=== PATIENT | female | born 1975 | race Caucasian/White ===

== ENCOUNTER 2017-10-21 14:02 | Emergency (ER) | payer OTHER ==
[2017-10-21 14:24] VITALS: BP 142/80
--- NOTE | 2017-10-21 14:41 | EDM.PDOC ---
ED HPI GENERAL MEDICAL PROBLEM - General Chief Complaint: Respiratory Problem Stated Complaint: DISCOMFORT WHEN BREATHING IN CHEST/HAS PACEMAKER Time Seen by Provider: 10/21/17 14:35 Source of Information: Reports: Patient History Limitations: Reports: No Limitations - History of Present Illness INITIAL COMMENTS - FREE TEXT/NARRATIVE: Pt with sudden onset chest pressure while driving to work. Had rested and showered this morning. History of DVT 2014 and pacemaker for heart block in 2014. Takes no meds. Did have hematology workup for DVT that year. Pt does not smoke. Pt does use large amounts of caffeine today. Denies shortness of breath. Denies pain at rest. Feels the pressure with inspiration. Onset: Sudden Onset Date: 10/21/17 Onset Time: 14:41 Duration: Intermittent Location: Reports: Chest Quality: Reports: Dull Severity: Moderate Improves with: Reports: None Worsens with: Reports: Breathing Associated Symptoms: Reports: No Other Symptoms - Related Data Allergies Allergy/AdvReac Type Severity Reaction Status Date / Time adhesive Allergy Hives Verified 10/21/17 14:24 Home Meds: Home Meds NK [No Known Home Meds] 10/21/17 [History] Past Medical History Cardiovascular History: Reports: Blood Clots/VTE/DVT, Hypertension, Pacemaker Other Cardiovascular History: 3 rd degree heart block Musculoskeletal History: Reports: Arthritis Psychiatric History: Reports: PTSD Endocrine/Metabolic History: Reports: Obesity/BMI 30+ Hematologic History: Reports: Anemia, Blood Transfusion(s) - Infectious Disease History Infectious Disease History: Reports: Chicken Pox - Past Surgical History HEENT Surgical History: Reports: Adenoidectomy Other HEENT Surgeries/Procedures: bilateral tubes ears Female Surgical History: Reports: Section Social & Family History - Tobacco Use Smoking Status *Q: Never Smoker - Caffeine Use Caffeine Use: Reports: Soda, Tea - Recreational Drug Use Recreational Drug Use: No ED ROS GENERAL - Review of Systems Review Of Systems: See Below Constitutional: Reports: No Symptoms HEENT: Reports: No Symptoms Respiratory: Reports: No Symptoms Cardiovascular: Reports: Chest Pain Endocrine: Reports: No Symptoms GI/Abdominal: Reports: No Symptoms Musculoskeletal: Reports: No Symptoms Skin: Reports: No Symptoms Neurological: Reports: No Symptoms Psychiatric: Reports: No Symptoms Hematologic/Lymphatic: Reports: No Symptoms Immunologic: Reports: No Symptoms ED EXAM, GENERAL - Physical Exam Exam: See Below Exam Limited By: No Limitations General Appearance: Alert, WD/WN, No Apparent Distress, Obese Ears: Normal External Exam, Normal Canal, Hearing Grossly Normal, Normal TMs Nose: Normal Inspection, Normal Mucosa, No Blood Throat/Mouth: Normal Inspection, Normal Lips, Normal Teeth, Normal Gums, Normal Oropharynx, Normal Voice, No Airway Compromise Head: Atraumatic, Normocephalic Neck: Normal Inspection, Supple, Non-Tender, Full Range of Motion Respiratory/Chest: No Respiratory Distress, Lungs Clear, Normal Breath Sounds, No Accessory Muscle Use, Chest Non-Tender Cardiovascular: Normal Peripheral Pulses, Regular Rate, Rhythm, No Edema, No Gallop, No JVD, No Murmur, No Rub GI/Abdominal: Normal Bowel Sounds, Soft, Non-Tender, No Organomegaly, No Distention, No Abnormal Bruit, No Mass Extremities: Normal Inspection, Normal Range of Motion, Non-Tender, Normal Capillary Refill, No Pedal Edema Neurological: Alert, Oriented, CN II-XII Intact, Normal Cognition, Normal Gait, Normal Reflexes, No Motor/Sensory Deficits Psychiatric: Normal Affect, Normal Mood Skin Exam: Warm, Dry, Intact, Normal Color, No Rash Lymphatic: No Adenopathy EKG INTERPRETATION EKG Date: 10/21/17 Time: 14:55 Rhythm: NSR [place]: Normal P-Wave: Present QRS: Normal ST-T: Normal QT: Normal Comparison: No Change Course - Vital Signs Last Recorded V/S: Last Vital Signs Temp 98.3 F 10/21/17 14:22 Pulse 74 10/21/17 14:22 Resp 16 10/21/17 14:22 BP 142/80 H 10/21/17 14:22 Pulse Ox 97 10/21/17 14:22 - Orders/Labs/Meds Orders: Active Orders 24 hr Category Date Time Status Cardiac Monitoring [RC] .As Directed Care 10/21/17 14:43 Active EKG Documentation Completion [RC] ASDIRECTED Care 10/21/17 14:44 Active Chest 2V [CR] Stat Exams 10/21/17 14:44 Taken EKG 12 Lead [EK] Stat Ther 10/21/17 14:44 Ordered Labs: Laboratory Tests 10/21/17 10/21/17 10/21/17 Range/Units 14:58 14:58 14:58 WBC 5.6 (4.5-11.0) K/uL RBC 4.40 (3.30-5.50) M/uL Hgb 12.6 (12.0-15.0) g/dL Hct 39.2 (36.0-48.0) % MCV 89 (80-98) fL MCH 29 (27-31) pg MCHC 32 (32-36) % Plt Count 327 (150-400) K/uL Neut % (Auto) 50 (36-66) % Lymph % (Auto) 40 (24-44) % [place] % (Auto) 8 H (2-6) % Eos % (Auto) 1 L (2-4) % Baso % (Auto) 0 (0-1) % D-Dimer, Quantitative < 100 (0.0-400.0) ng/mL Sodium 140 (140-148) mmol/L Potassium 3.8 (3.6-5.2) mmol/L Chloride 106 (100-108) mmol/L Carbon Dioxide 28 (21-32) mmol/L Anion Gap 5.6 (5.0-14.0) mmol/L BUN 10 (7-18) mg/dL Creatinine 0.8 (0.6-1.0) mg/dL Est Cr Clr Drug Dosing 70.98 mL/min Estimated GFR (MDRD) > 60 (>60) Glucose 135 H (74-106) mg/dL Calcium 9.1 (8.5-10.1) mg/dL Total Bilirubin 0.6 (0.2-1.0) mg/dL AST 17 (15-37) U/L ALT 20 (12-78) U/L Alkaline Phosphatase 122 H (46-116) U/L Creatine Kinase 128 (26-192) U/L CK-MB (CK-2) 1.7 (0-3.6) mg/mL Troponin I < 0.017 (0.000-0.056) ng/mL C-Reactive Protein 0.49 H (0.0-0.3) mg/dL Total Protein 6.8 (6.4-8.2) g/dL Albumin 3.2 L (3.4-5.0) g/dL Globulin 3.6 H (2.3-3.5) g/dL Albumin/Globulin Ratio 0.9 L (1.2-2.2) Meds: Medications Discontinued Medications Generic Name Dose Route Start Last Admin Trade Name Emma PRN Reason Stop Dose Admin Al Hydroxide/Mg Hydroxide 15 0 ml 10/21/17 15:06 10/21/17 15:23 ml/ Lidocaine HCl 15 ml PO 10/21/17 15:07 30 ml ONETIME ONE Administration Departure - Departure Time of Disposition: 15:41 Disposition: Home, Self-Care 01 Condition: Good Clinical Impression: Dyspepsia - Discharge Information *PRESCRIPTION DRUG MONITORING PROGRAM REVIEWED*: Not Applicable *COPY OF PRESCRIPTION DRUG MONITORING REPORT IN PATIENT JOSE LUIS: Not Applicable Instructions: Abdominal Bloating Referrals: PCP,None [Primary Care Provider] - Forms: ED Department Discharge Additional Instructions: Labs and Chest xray normal. EKG normal. Pt responds well to GI cocktail. Stressed the need to avoid caffeine and limit sugar in diet. Encouraged regular exercise and weight loss for weight reduction and cardiovascular risk reduction. Pt to followup if pain persists with primary care. - Problem List & Annotations (1) Dyspepsia SNOMED Code(s): 408442541 Code(s): R10.13 - EPIGASTRIC PAIN Status: Acute Priority: Medium Current Visit: Yes - My Orders Last 24 Hours: My Active Orders 10/21/17 14:43 Cardiac Monitoring [RC] .As Directed 10/21/17 14:44 EKG Documentation Completion [RC] ASDIRECTED Chest 2V [CR] Stat EKG 12 Lead [EK] Stat - Assessment/Plan Last 24 Hours: My Active Orders 10/21/17 14:43 Cardiac Monitoring [RC] .As Directed 10/21/17 14:44 EKG Documentation Completion [RC] ASDIRECTED Chest 2V [CR] Stat EKG 12 Lead [EK] Stat
[2017-10-21] MEDS ORDERED: Alum Hydrox/Mag Hydrox/Simeth 15 ML, Lidocaine 2% 15 ML PO ONE ×2 (15:06)
--- NOTE | 2017-10-24 09:17 | CR ---
CHEST: 2 view CLINICAL HISTORY:Chest pain COMPARISON:Portable study 2014 FINDINGS: Heart size and pulmonary vascularity are normal. Patient has a permanent cardiac pacer. No infiltrates are seen. There are no effusions. There is a calcified nodule in the right lower lobe. T his is seen on CT scan from 10/21/2017 IMPRESSION: Permanent cardiac pacer No acute cardiopulmonary process Right lower lobe granuloma
== END 2017-10-21 16:02 | disposition home or self-care (01) ==
LOC: JP.ED 14:02
DX: R10.13 Epigastric pain (principal); I10 Essential (primary) hypertension; Z91.09 Other allergy status, other than to drugs and biological substances
CPT/HCPCS: 36415; 71046; 80053; 82550; 82553; 84484; 85025; 85379; 86140; 93005; 99285; A9270

== ENCOUNTER 2019-07-24 09:54 | Inpatient (IN) | payer BC, OTHER ==
[2019-07-24] MEDS ORDERED: Ondansetron 4 MG Tab.DIS PO ONE (10:33)
--- NOTE | 2019-07-24 10:44 | EDM.PDOC ---
ED HPI GENERAL MEDICAL PROBLEM - General Chief Complaint: Abdominal Pain Stated Complaint: STOMACH PAIN Time Seen by Provider: 07/24/19 10:25 Source of Information: Reports: Patient, Old Records History Limitations: Reports: No Limitations - History of Present Illness INITIAL COMMENTS - FREE TEXT/NARRATIVE: 44 yo female presents with abdominal pain diffusely that she has been experiencing every couple mos since Mar. Her work ups have been negative @ the [facility]. She has never been to her provider for this due to how hard it is to get an appt. Has nausea. No fever. Last BM yesterday was normal. Pain diffuse. Worse with movement. Has not eaten today. Had colonoscopy 6 yrs ago that was normal per her. Not able to vomit due to her Darwin. Onset: Today Onset Date: 07/24/19 Duration: Hour(s):, Constant Location: Reports: Abdomen Quality: Reports: Ache, Other (fullness) Severity: Moderate Improves with: Reports: Rest Worsens with: Reports: Movement Context: Reports: Other (see HPI) Associated Symptoms: Reports: Nausea/Vomiting (not able to vomit.). 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: Musculoskeletal History: Reports: Arthritis Psychiatric History: Reports: PTSD Endocrine/Metabolic History: Reports: Obesity/BMI 30+ Hematologic History: Reports: Anemia, Blood Transfusion(s) - Infectious Disease History Infectious Disease History: Reports: Chicken Pox - Past Surgical History HEENT Surgical History: Reports: Adenoidectomy Other HEENT Surgeries/Procedures: bilateral tubes ears Cardiovascular Surgical History: Reports: Pacer GI Surgical History: Reports: Hernia Repair/Other Female Surgical History: Reports: Section Social & Family History - Tobacco Use Smoking Status *Q: Never Smoker - Caffeine Use Caffeine Use: Reports: Tea ED ROS GENERAL - Review of Systems Review Of Systems: See Below Constitutional: Denies: Fever, Chills HEENT: Reports: No Symptoms Respiratory: Reports: No Symptoms Cardiovascular: Reports: No Symptoms GI/Abdominal: Reports: Abdominal Pain, Decreased Appetite, Distension, Nausea. Denies: Black Stool, Bloody Stool, Constipation, Flatus, Hematemesis, Hematochezia, Melena, Vomiting : Reports: No Symptoms Musculoskeletal: Reports: No Symptoms Skin: Reports: No Symptoms Neurological: Reports: No Symptoms Psychiatric: Reports: No Symptoms ED EXAM, GI/ABD - Physical Exam Exam: See Below Exam Limited By: No Limitations General Appearance: Alert, WD/WN, No Apparent Distress, Obese Eyes: Bilateral: Normal Appearance Ears: Normal External Exam, Normal Canal, Hearing Grossly Normal, Normal TMs Nose: Normal Inspection, No Blood Throat/Mouth: Normal Inspection, Normal Lips, Normal Oropharynx, Normal Voice, No Airway Compromise Head: Atraumatic, Normocephalic Neck: Normal Inspection Respiratory/Chest: No Respiratory Distress, Lungs Clear, Normal Breath Sounds, No Accessory Muscle Use Cardiovascular: Regular Rate, Rhythm, No Edema GI/Abdominal Exam: Normal Bowel Sounds, Soft, Distended (vs obese), Tender ( diffusely). No: Non-Tender, No Distention, Guarding, Rigid, Rebound Back Exam: Normal Inspection. No: CVA Tenderness (R), CVA Tenderness (L) Extremities: Normal Inspection, Normal Range of Motion, Non-Tender, No Pedal Edema Neurological: Alert, Oriented, CN II-XII Intact, Normal Cognition, No Motor/ Sensory Deficits Psychiatric: Normal Affect, Normal Mood Skin Exam: Warm, Dry, Intact, Normal Color, No Rash Course - Vital Signs Text/Narrative:: Dr. Saira Werner called @ 1332h Last Recorded V/S: Last Vital Signs Temp 36.9 C 07/24/19 10:22 Pulse 130 H 07/24/19 10:22 Resp 14 07/24/19 10:22 BP 121/87 07/24/19 10:22 Pulse Ox 96 07/24/19 10:22 - Orders/Labs/Meds Orders: Active Orders 24 hr Category Date Time Status UA W/MICROSCOPIC [URIN] Stat Lab 07/24/19 10:34 Ordered Iopamidol [Isovue-300 (61%)] Med 07/24/19 11:37 Active 150 ml IV . DIRECTED PRN NS + KCl 20mEq/L [Normal Saline with 20 mEq KCl] 1,000 Med 07/24/19 11:15 Active ml IV ASDIRECTED Sodium Chloride 0.9% [Normal Saline] 85 ml Med 07/24/19 11:45 Active IV ASDIRECTED Medication Orders Potassium Chloride/Sodium Chloride (Normal Saline With 20 Meq Kcl) 1,000 mls @ 500 mls/hr IV ASDIRECTED EDE Last Admin: 07/24/19 11:44 Dose: 500 mls/hr Sodium Chloride (Normal Saline) 85 mls @ 3.5 mls/sec IV ASDIRECTED EDE Last Admin: 07/24/19 12:35 Dose: 3.5 mls/sec Iopamidol (Isovue-300 (61%)) 150 ml IV . DIRECTED PRN PRN Reason: RADIOLOGY EXAM Stop: 07/25/19 11:38 Last Admin: 07/24/19 12:34 Dose: 100 ml Labs: Laboratory Tests 07/24/19 07/24/19 07/24/19 Range/Units 10:47 10:47 11:12 WBC 15.7 H (4.5-11.0) K/uL RBC 4.35 (3.30-5.50) M/uL Hgb 12.2 (12.0-15.0) g/dL Hct 38.9 (36.0-48.0) % MCV 89 (80-98) fL MCH 28 (27-31) pg MCHC 31 L (32-36) % Plt Count 324 (150-400) K/uL Sodium 139 L (140-148) mmol/L Potassium 3.5 L (3.6-5.2) mmol/L Chloride 104 (100-108) mmol/L Carbon Dioxide 23 (21-32) mmol/L Anion Gap 15.5 H (5.0-14.0) mmol/L BUN 11 (7-18) mg/dL Creatinine 0.9 (0.6-1.0) mg/dL Est Cr Clr Drug Dosing 58.94 mL/min Estimated GFR (MDRD) > 60 (>60) Glucose 125 H (74-106) mg/dL Calcium 8.7 (8.5-10.1) mg/dL Total Bilirubin 1.6 H D (0.2-1.0) mg/dL AST 12 L (15-37) U/L ALT 27 (12-78) U/L Alkaline Phosphatase 82 (46-116) U/L C-Reactive Protein 3.42 H (0.0-0.3) mg/dL Total Protein 7.6 (6.4-8.2) g/dL Albumin 3.6 (3.4-5.0) g/dL Globulin 4.0 H (2.3-3.5) g/dL Albumin/Globulin Ratio 0.9 L (1.2-2.2) Lipase 61 L (73-393) U/L Meds: Medications Generic Name Dose Route Start Last Admin Trade Name Freq PRN Reason Stop Dose Admin Potassium Chloride/Sodium Chloride 1,000 mls @ 500 mls/hr 07/24/19 11:15 05/09 11:44 Normal Saline With 20 Meq Kcl IV 500 mls/hr ASDIRECTED EDE Administration Sodium Chloride 85 mls @ 3.5 mls/sec 07/24/19 11:45 07/24/19 12:35 Normal Saline IV 3.5 mls/sec ASDIRECTED EDE Administration Iopamidol 150 ml 07/24/19 11:37 07/24/19 12:34 Isovue-300 (61%) IV 07/25/19 11:38 100 ml . DIRECTED PRN Administration RADIOLOGY EXAM Discontinued Medications Generic Name Dose Route Start Last Admin Trade Name Freq PRN Reason Stop Dose Admin Hydromorphone HCl 0.25 mg 07/24/19 11:16 07/24/19 11:42 Dilaudid IVPUSH 07/24/19 11:17 0.25 mg ONETIME ONE Administration Ondansetron HCl 4 mg 07/24/19 10:33 07/24/19 11:42 Zofran Odt PO 07/24/19 10:34 4 mg ONETIME ONE Administration Sodium Chloride 10 ml 07/24/19 11:37 07/24/19 12:35 Saline Flush FLUSH 07/24/19 11:38 10 ml ONETIME ONE Administration - Radiology Interpretation Free Text/Narrative:: CT abd/pelvis with IV contrast- Departure - Departure Time of Disposition: 13:50 Disposition: Admitted As Inpatient 64 Condition: Fair Clinical Impression: Acute appendicitis Qualifiers: Acute appendicitis type: with localized peritonitis Appendicitis gangrene presence: unspecified whether gangrene present Appendicitis perforation presence : without perforation Appendicitis abscess presence: without abscess Qualified Code(s): K35.30 - Acute appendicitis with localized peritonitis, without perforation or gangrene - Discharge Information *PRESCRIPTION DRUG MONITORING PROGRAM REVIEWED*: No *COPY OF PRESCRIPTION DRUG MONITORING REPORT IN PATIENT JOSE LUIS: No Referrals: Nelly Palma MD [Primary Care Provider] - Forms: ED Department Discharge Sepsis Event Note - Evaluation Sepsis Screening Result: No Definite Risk - Focused Exam Vital Signs: Vital Signs Temp Pulse Resp BP Pulse Ox 07/24/19 10:22 36.9 C 130 H 14 121/87 96 07/24/19 10:14 36.9 C 130 H 14 121/87 96 Date Exam was Performed: 07/24/19 Time Exam was Performed: 13:39 - My Orders Last 24 Hours: My Active Orders 07/24/19 10:34 UA W/MICROSCOPIC [URIN] Stat 07/24/19 11:15 NS + KCl 20mEq/L [Normal Saline with 20 mEq KCl] 1,000 ml IV ASDIRECTED 07/24/19 11:37 Iopamidol [Isovue-300 (61%)] 150 ml IV . DIRECTED PRN 07/24/19 11:45 Sodium Chloride 0.9% [Normal Saline] 85 ml IV ASDIRECTED - Assessment/Plan Last 24 Hours: My Active Orders 07/24/19 10:34 UA W/MICROSCOPIC [URIN] Stat 07/24/19 11:15 NS + KCl 20mEq/L [Normal Saline with 20 mEq KCl] 1,000 ml IV ASDIRECTED 07/24/19 11:37 Iopamidol [Isovue-300 (61%)] 150 ml IV . DIRECTED PRN 07/24/19 11:45 Sodium Chloride 0.9% [Normal Saline] 85 ml IV ASDIRECTED
[2019-07-24] MEDS ORDERED: NS + KCl 20mEq/L 1,000 ML IV SCH (11:15)
[2019-07-24] MEDS ORDERED: HYDROmorphone 0.5 MG/0.5 ML Syringe IVPUSH ONE ×2 (11:16→14:02)
[2019-07-24] MEDS ORDERED: Iopamidol 612 MG/ML 150 ML Bottle IV PRN (11:37)
[2019-07-24] MEDS ORDERED: Sodium Chloride 0.9% 10 ML Syringe FLUSH ONE (11:37)
--- NOTE | 2019-07-24 12:53 | CT ---
Abdomen Pelvis w Cont CLINICAL HISTORY: Abdominal pain and leukocytosis COMPARISON: 2014. TECHNIQUE: Axial tomographic images are obtained from the dome of the diaphragm to the pubic symphysis without IV contrast enhancement. No oral contrast was used. Auto dosage reduction and iterative reconstruction techniques employed. FINDINGS: There is peritoneal inflammation in the right lower quadrant with ill-definition of an enlarged enhancing appendix with a small amount of free fluid. There is cecal dilatation which may represent some focal ileus The lung bases show no mass or infiltrates. There is a large granuloma in the right lung base. There is some breathing motion obscuring detail.. The liver shows no mass or biliary dilatation. The gallbladder has a normal contour. The spleen has a normal size and shape. Patient has had a previous Darwin procedure. There is a small hiatal hernia. The pancreas is free of mass or inflammatory change. The adrenal glands appear normal bilaterally. The kidneys show no mass stones or hydronephrosis. There appears to been a previous bypass of the left the common iliac artery with stent placement the into the left femoral artery. This is occluded. There is a patent to the iliac vessel anteriorly. This should be correlated with clinical and surgical history. There is no suspicious retroperitoneal adenopathy. IMPRESSION: Findings most consistent with appendicitis. The appendix is poorly defined due to regional inflammation. There is a small amount of localized free fluid. There is localized to the cecal and ascending colon ileus Previous distal aortic and iliac surgery with previous stent placement which is occluded. There is a patent left iliac vessel. Small hiatal hernia with previous Darwin procedure.
[2019-07-24] MEDS ORDERED: Bupivacaine 0.5%/EPINEPHrine 1:200,000 50 ML MDV ONE (14:08)
[2019-07-24] MEDS ORDERED: Ampicillin/Sulbactam Na 3 GM in Sodium Chloride 0.9% 100 ML IV ONE (14:15)
[2019-07-24] MEDS ORDERED: Dextrose 5%-Lactated Ringers 1,000 ML IV SCH ×2 (14:45→19:15)
[2019-07-24] MEDS ORDERED: HYDROmorphone/Normal Saline 15 MG/30 ML PCA IV PRN (14:49)
[2019-07-24] MEDS ORDERED: Naloxone 0.4 MG/ML SDV IV PRN (14:49)
[2019-07-24] MEDS ORDERED: fentaNYL 250 MCG/5 ML SDV ONE (15:01)
[2019-07-24] MEDS ORDERED: Neostigmine Methylsulfate 1 MG/ML 5 ML Syringe ONE (15:02)
[2019-07-24] MEDS ORDERED: Rocuronium 50 MG/5 ML Vial ONE (15:02)
[2019-07-24] MEDS ORDERED: Dexamethasone 4 MG/ML SDV ONE (15:02)
[2019-07-24] MEDS ORDERED: Ondansetron 4 MG/2 ML SDV ONE (15:02)
[2019-07-24] MEDS ORDERED: Propofol 200 MG/20 ML SDV ONE (15:02)
[2019-07-24] MEDS ORDERED: Glycopyrrolate 0.2 MG/ML 5 ML MDV ONE (15:02)
[2019-07-24] MEDS ORDERED: Succinylcholine 200 MG/10 ML MDV ONE (15:02)
[2019-07-24] MEDS ORDERED: Ketamine 500 MG/5 ML MDV IV SCH (15:30)
[2019-07-24] MEDS ORDERED: Ketamine 50 MG in Sodium Chloride 0.9% 49.5 ML IV SCH (15:30)
[2019-07-24] MEDS ORDERED: Meropenem 500 MG SDV ONE (17:24)
[2019-07-24] MEDS ORDERED: hydrOXYzine HCL 100 MG/2 ML SDV IM ONE (17:48)
[2019-07-24] MEDS ORDERED: Ondansetron 4 MG/2 ML SDV IVPUSH PRN (19:14)
[2019-07-24] MEDS ORDERED: Cyclobenzaprine 10 MG Tab PO PRN (19:16)
[2019-07-24] MEDS ORDERED: hydrOXYzine HCL 100 MG/2 ML SDV IM PRN (19:17)
[2019-07-24] MEDS: Ampicillin/Sulbactam Na 3 GM in Sodium Chloride 0.9% 100 ML IV SCH (20:50)
[2019-07-24] MEDS: Pantoprazole 40 MG Vial IV SCH (20:52)
[2019-07-25] MEDS: Ampicillin/Sulbactam Na 3 GM in Sodium Chloride 0.9% 100 ML IV SCH ×4 (03:55→20:38)
[2019-07-25] MEDS: HYDROmorphone 2 MG Tab PO PRN ×3 (08:01→16:19)
[2019-07-25] MEDS ORDERED: RIVAROXABAN PO SCH (09:00)
[2019-07-25] MEDS ORDERED: VENLAFAXINE HCL PO SCH (09:00)
[2019-07-25] MEDS: Acetaminophen 500 MG Tab PO SCH ×3 (09:21→21:20)
[2019-07-25] MEDS: Dextrose 5%-Lactated Ringers 1,000 ML IV SCH ×2 (09:29→20:29)
[2019-07-25] MEDS ORDERED: Venlafaxine 75 MG Cap.ER PO SCH (10:00)
[2019-07-25] MEDS: Docusate Sodium 100 MG Cap PO SCH ×2 (10:26→20:39)
[2019-07-25] MEDS: Bisacodyl 5 MG Tab PO SCH ×2 (10:26→20:39)
--- NOTE | 2019-07-25 11:27 | PN ---
DATE OF SERVICE: 07/25/2019 SUBJECTIVE: Alexandrea is postoperative day #1 following a laparoscopic appendectomy. She is afebrile. 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 Vital signs have been stable. She has no questions or concerns. OBJECTIVE: GENERAL: Alexandrea Zayas is a pleasant 44-year-old female, alert and orientated. VITAL SIGNS: TPR at 0706, 97.2; 58; 18; blood pressure 110/58. HEENT: Negative. NECK: Supple. HEART: Regular rate and rhythm. LUNGS: Clear. ABDOMEN: Dressings dry and intact. Abdominal binder is on. EXTREMITIES: Without peripheral edema. ASSESSMENT: Laparoscopic appendectomy for acute appendicitis. Date of surgery: 07/24/2019. Surgeon: David Werner MD. PLAN: 1. Full liquid diet. 2. Discontinue ERECTING ENGINEER, continuous pulse ox. 3. Decrease IV to 100 mL per hour. 4. Dilaudid 2 to 4 mg every 4 hours p.r.n. pain. 5. Effexor 150 mg p.o. daily. Home medications restarted. 6. Xarelto 20 mg p.o. daily. Home medications restarted. 7. Tylenol 1000 mg q.6 hours scheduled. 8. Colace 100 mg b.i.d. 9. Dulcolax 10 mg b.i.d. scheduled until the patient has a bowel movement. 10.We will evaluate p.r.n. or in a.m. Rosenda Melo PA-C /[id number]
[2019-07-25] MEDS ORDERED: Rivaroxaban 10 MG Tab PO SCH (17:00)
[2019-07-25] MEDS: Pantoprazole 40 MG Vial IV SCH (20:39)
[2019-07-26] MEDS: HYDROmorphone 2 MG Tab PO PRN ×2 (00:49→07:28)
[2019-07-26] MEDS: Ampicillin/Sulbactam Na 3 GM in Sodium Chloride 0.9% 100 ML IV SCH (02:52)
[2019-07-26] MEDS: Acetaminophen 500 MG Tab PO SCH (03:03)
[2019-07-26 07:13] VITALS: BP 134/62; PULSE 75
--- NOTE | 2019-07-26 18:54 | DISCH ---
ADMISSION DIAGNOSIS: Acute appendicitis. DISCHARGE DIAGNOSIS: Diagnostic laparoscopy with: 1. a. Partial cystectomy involving removal of appendix. b. Drainage of pericolonic abscess. c. Excision of peritoneal nodule. POSTOPERATIVE DIAGNOSES: 1. Perforated appendix with necrosis extending into the cecal base. 2. Pericolonic abscess extending from ascending colon into pelvis. 3. 1 cm peritoneal nodule, right pelvic sidewall. Date of surgery 07/24/2019. Surgeon: David Werner MD. HISTORY: Alexandrea Zayas is a 44-year-old female who presented to the emergency room with abdominal pain. After preoperative evaluation and discussion of possible risks and possible complications, she wished to proceed with surgical procedure. HOSPITAL COURSE: Alexandrea had her emergency appendectomy on 07/24/2019. She had no operative complications. On postoperative day #1, she was started on a full liquid diet. STAFF CYTOTECHNOLOGIST was discontinued. She was changed to oral pain medication and her home medications were started including bowel stimulation. On postoperative day 2, afebrile, activity good. Had a bowel movement. Oral intake was adequate. Output adequate. SANDHYA drain put out 65 mL of pink drainage. Alexandrea was able to be discharged to home without any complications. PHYSICAL EXAMINATION: GENERAL: Alexandrea Zayas is a 44-year-old female. She is alert and orientated. VITAL SIGNS: TPR at 0712 is 96.4, 75, 18. Blood pressure 134/62. HEENT: Negative. NECK: Supple. HEART: Regular rate and rhythm. LUNGS: Clear. ABDOMEN: Incisions look good. Sutures intact. 4 x 4 will be over SANDHYA drain site. EXTREMITIES: Without peripheral edema. DISPOSITION: Discharged to home. CONDITION: Stable and improving. FOLLOWUP: Appointment with Rosenda Melo PA-C, at [facility] on 08/05/2019 at 8:15 a.m. HOME MEDICATIONS: 1. Dilaudid 2 mg p.o. q.4 hours p.r.n. pain, #42. 2. Augmentin 875 mg, 1 oral b.i.d., #10. 3. Zofran ODT 4 mg q.4 hours p.r.n. nausea, #30. To resume home medications. DIET: Usual diet as tolerated. Drink 8 to 10 glasses of water a day. ACTIVITY: No lifting greater than 10 pounds for 2 weeks. Walk 6 times inside your home. Driving: Do not drive for 1 week and while on pain medication. Shower/bathing: May shower. DISCHARGE INSTRUCTIONS: Keep operative site clean and dry. Wear abdominal binder for 2 weeks or as tolerated. Notify provider if any fever, increased pain, swelling, redness, nausea, or vomiting. OTHER INSTRUCTIONS: Use incentive spirometer 10 times every hour while awake for 1 week.
--- NOTE | 2019-07-31 19:04 | OR ---
DATE OF PROCEDURE: 07/24/2019 SURGEON: David Werner MD PREOPERATIVE DIAGNOSIS: Acute appendicitis. POSTOPERATIVE DIAGNOSES: 1. Perforated appendix with necrosis extending onto cecal base. 2. Pericolonic abscess extending from ascending colon into pelvis. 3. Peritoneal nodule of right pelvic sidewall (1 cm). OPERATIVE PROCEDURES: Diagnostic laparoscopy with, 1. Partial cecectomy involving removal of overlying appendix (35476). 2. Drainage of pericolonic abscess (52753). 3. Excision of peritoneal nodule located in right pelvic sidewall (78392). ANESTHESIA: General. INDICATION FOR PROCEDURE: This 44-year-old female is presenting with a picture of acute appendicitis. She does have some fluid in the pelvis on CT scan. The plan will be to proceed with a diagnostic laparoscopy, laparotomy if necessary, and appendectomy with other procedures as indicated based on operative findings. Potential risks including bleeding, infection, leaks from GI tract closures, as well as the possibility of cardiopulmonary, septic, or hemorrhagic complications leading to were discussed, and the patient wishes to proceed. DETAILS OF PROCEDURE: The patient was taken to the operating room and placed in a supine position. After general endotracheal anesthesia was induced, a Mack catheter was inserted, and the abdomen was prepped and draped. In the right upper quadrant, a transverse incision was made. The peritoneal cavity was entered under direct vision with an Optiview trocar and inflated to 15 mmHg with CO2. Following this, 12 mm trocars were placed in the left upper quadrant and left lower quadrant and the lower abdomen was examined. The patient was noted to have quite a bit in the way of purulence located beginning in the area adjacent to the ascending colon, just below the liver, and then extending downward from there into the pelvis. Cultures of this were obtained. As the appendix was mobilized upward, there was noted to be quite a bit of necrosis at the tip of the base of the appendix, and this extended somewhat onto the colon. After the mesoappendix was divided, minimal traction of the appendix at that point resulted in the appendix completely detaching from the surface of the cecum. This required therefore, in addition to the necrosis extending onto the cecum, a partial cecectomy which was accomplished with two firings of the WILMAN purple loads. The cecal closure staple line appeared to be intact at this time. Further dissection into the pelvis below the cecum revealed some additional purulence, which was then evacuated. The patient was noted to have a 1 cm nodule in the right pelvic sidewall of uncertain nature. This might be endometrioma or some other peritoneal nodule. This was excised by means of Harmonic scalpel and delivered from the abdomen for histologic evaluation. At this point, the abdomen was irrigated with meropenem-containing saline solution. A Aden-Quintero drain was taken out through the small 5 mm port placed in the right flank, from there draped across the area of the pericolic gutter, down across the cecal closure, and from there into the pelvis. With no further problems noted, the trocars were removed and the peritoneal cavity deflated. Incisions in the upper abdomen were closed with 4-0 Vicryl skin stitch. The skin at the left lower quadrant site, where the specimens were retrieved, was packed open with Iodoform gauze. All of the incisions were closed at the fascia level with 0 Vicryl stitch. Prior to closure, bilateral transversus abdominis plane blocks were placed. The patient was taken to the recovery room in satisfactory condition. David Werner MD /[id number]
== END 2019-07-26 09:49 | disposition home or self-care (01) | DRG 330 ==
LOC: JP.ED 09:54 → JP.SDS 14:09 → JP.MS 14:23
PROVIDERS: ADMIT Surgery; ATTEND Surgery
PROC: 0DBH4ZZ Excision of Cecum, Percutaneous Endoscopic Approach (ICD-10-PCS; principal; 2019-07-24)
PROC: 0DBW4ZZ Excision of Peritoneum, Percutaneous Endoscopic Approach (ICD-10-PCS; 2019-07-24)
PROC: 0DTJ4ZZ Resection of Appendix, Percutaneous Endoscopic Approach (ICD-10-PCS; 2019-07-24)
PROC: 0W9G4ZZ Drainage of Peritoneal Cavity, Percutaneous Endoscopic Approach (ICD-10-PCS; 2019-07-24)
DX: K35.30 Acute appendicitis with localized peritonitis, without perforation or gangrene (principal); Z86.718 Personal history of other venous thrombosis and embolism; K35.33 Acute appendicitis with perforation, localized peritonitis, and gangrene, with abscess; Z68.41 Body mass index [BMI] 40.0-44.9, adult; M19.90 Unspecified osteoarthritis, unspecified site; E66.9 Obesity, unspecified; F43.10 Post-traumatic stress disorder, unspecified; I10 Essential (primary) hypertension; Z79.899 Other long term (current) drug therapy; Z91.048 Other nonmedicinal substance allergy status; Z95.0 Presence of cardiac pacemaker; Z91.09 Other allergy status, other than to drugs and biological substances; Z79.01 Long term (current) use of anticoagulants
CPT/HCPCS: 36415; 74177 ×2; 80053; 83690; 85027; 86140; A9270; J1170; J3480; J3490; J7050; Q9967; 81001; 87070; 87075; 87077; 87205; 88304; 88305; 88307; 94762; 99285; C9113; J0171; J0295; J0330; J1100; J2185; J2405; J2704; J2710; J2795; J3010; J3410; J7121

== ENCOUNTER 2020-01-08 10:57 | Emergency (ER) | payer OTHER ==
[2020-01-08 11:15] VITALS: BP 139/93; PULSE 89
--- NOTE | 2020-01-08 11:50 | EDM.PDOC ---
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 Some cramping. Is on Xarelto for a blood clot that is old in her thigh. Not orthostatic. Gets most of her care at the [facility]. Was told by the [facility] to come to the ER today. Denies any chance of , is not sexually active. Mother entered menopause about age 50? Went off Depo shots this past April with at least one normal menses since. Onset: Today Onset Date: 01/08/20 Duration: Hour(s):, Constant Location: Reports: Pelvis Quality: Reports: Other (cramping) Severity: Mild (cramping mild, menses heavy) Improves with: Reports: None Worsens with: Reports: Other (unknown) Context: Reports: Other (See HPI) Associated Symptoms: Reports: No Other Symptoms Treatments HUMAN RESOURCES REPRESENTATIVE: Reports: Other (see below) (none) Pelvic Pain Score (Numeric/FACES): 3 - Related Data Allergies Allergy/AdvReac Type Severity Reaction Status Date / Time adhesive Allergy Hives Verified 01/08/20 11:20 Home Meds: Home Meds Rivaroxaban [Xarelto] 20 mg PO DAILY 07/24/19 [History] Venlafaxine HCl [Venlafaxine ER] 300 mg PO DAILY 07/24/19 [History] Acetaminophen [Tylenol Extra Strength] 1,000 mg PO Q6H tablet 07/26/19 [Rx] Ondansetron [Zofran ODT] 4 mg PO Q4H PRN #30 tab.dis 07/26/19 [Rx] Past Medical History HEENT History: Reports: None Cardiovascular History: Reports: Blood Clots/VTE/DVT, Hypertension, Pacemaker Other Cardiovascular History: 3 rd degree heart block Respiratory History: Reports: Sleep Apnea Gastrointestinal History: Reports: None Genitourinary History: Reports: None 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: Musculoskeletal History: Reports: Arthritis Neurological History: Reports: None Psychiatric History: Reports: Anxiety, Depression, PTSD Endocrine/Metabolic History: Reports: Obesity/BMI 30+ Hematologic History: Reports: Anemia, Anticoagulation Therapy, Blood Transfusion(s) Immunologic History: Reports: None Oncologic (Cancer) History: Reports: None Dermatologic History: Reports: None - Infectious Disease History Infectious Disease History: Reports: Chicken Pox - Past Surgical History HEENT Surgical History: Reports: Adenoidectomy Other HEENT Surgeries/Procedures: bilateral tubes ears Cardiovascular Surgical History: Reports: Pacer Respiratory Surgical History: Reports: None GI Surgical History: Reports: Hernia Repair/Other, Darwin Fundoplication Female Surgical History: Reports: Section Endocrine Surgical History: Reports: None Neurological Surgical History: Reports: None Musculoskeletal Surgical History: Reports: None Oncologic Surgical History: Reports: None Social & Family History - Tobacco Use Tobacco Use Status *Q: Never Tobacco User - Caffeine Use Caffeine Use: Reports: Tea - Recreational Drug Use Recreational Drug Use: No ED ROS GENERAL - Review of Systems Review Of Systems: See Below Constitutional: Reports: No Symptoms HEENT: Reports: No Symptoms Respiratory: Reports: No Symptoms Cardiovascular: Reports: No Symptoms GI/Abdominal: Reports: No Symptoms : Reports: Other (uterine cramping, heavy menses) Musculoskeletal: Reports: No Symptoms Skin: Reports: No Symptoms Neurological: Reports: No Symptoms Psychiatric: Reports: No Symptoms ED EXAM, RENAL/ - Physical Exam Exam: See Below Exam Limited By: No Limitations General Appearance: Alert, WD/WN, No Apparent Distress, Obese Eye Exam: Bilateral Eye: Normal Inspection, PERRL Ears: Normal External Exam, Normal Canal, Hearing Grossly Normal, Normal TMs Throat/Mouth: Normal Inspection, Normal Lips, Normal Oropharynx, Normal Voice, No Airway Compromise Head: Atraumatic, Normocephalic Neck: Normal Inspection Respiratory/Chest: No Respiratory Distress, Lungs Clear, Normal Breath Sounds, No Accessory Muscle Use Cardiovascular: Regular Rate, Rhythm, No Edema GI/Abdominal: Normal Bowel Sounds, Soft, Non-Tender, No Distention Extremities: Normal Inspection Neurological: Alert, Oriented, CN II-XII Intact, Normal Cognition, No Motor/Sensory Deficits Psychiatric: Normal Affect, Normal Mood Skin Exam: Warm, Dry, Intact, Normal Color, No Rash Course - Vital Signs Last Recorded V/S: Last Vital Signs Temp 36.6 C 01/08/20 11:18 Pulse 89 01/08/20 11:18 Resp 18 01/08/20 11:18 BP 139/93 H 01/08/20 11:18 Pulse Ox 96 01/08/20 11:18 Orthostatic Blood Pressure [ 138/91 Standing] Orthostatic Blood Pressure [ 135/83 Sitting] Orthostatic Blood Pressure [ 131/74 Supine] - Orders/Labs/Meds Orders: Active Orders 24 hr Category Date Time Status Orthostatic Vital Signs [RC] ASDIRECTED Care 01/08/20 11:13 Active FSH, SERUM Routine Lab 01/08/20 11:53 Received Labs: Laboratory Tests 01/08/20 Range/Units 11:20 WBC 7.1 (4.5-11.0) K/uL RBC 4.53 (3.30-5.50) M/uL Hgb 12.4 (12.0-15.0) g/dL Hct 40.4 (36.0-48.0) % MCV 89 (80-98) fL MCH 27 (27-31) pg MCHC 31 L (32-36) % Plt Count 385 (150-400) K/uL Departure - Departure Time of Disposition: 12:15 Disposition: Home, Self-Care 01 Condition: Fair Clinical Impression: Menorrhagia Qualifiers: Menorrhagia type: premenopausal Qualified Code(s): N92.4 - Excessive bleeding in the premenopausal period - Discharge Information *PRESCRIPTION DRUG MONITORING PROGRAM REVIEWED*: Not Applicable *COPY OF PRESCRIPTION DRUG MONITORING REPORT IN PATIENT JOSE LUIS: Not Applicable Referrals: Nelly Palma MD [Primary Care Provider] - Forms: ED Department Discharge Additional Instructions: Take ibuprofen 600 mg every 6 hrs with food as needed for cramping. Drink ample fluids. See FARM FIELD MANAGER for further work up and management of your bleeding. An FSH level was ordered today to see if you are perimenopausal. This test is pending currently. Return as needed. Sepsis Event Note (ED) - Evaluation Sepsis Screening Result: No Definite Risk - Focused Exam Vital Signs: Vital Signs Temp Pulse Resp BP Pulse Ox 01/08/20 11:18 36.6 C 89 18 139/93 H 96 01/08/20 11:14 36.6 C 89 18 139/93 H 93 L - My Orders Last 24 Hours: My Active Orders 01/08/20 11:13 Orthostatic Vital Signs [RC] ASDIRECTED 01/08/20 11:53 FSH, SERUM Routine - Assessment/Plan Last 24 Hours: My Active Orders 01/08/20 11:13 Orthostatic Vital Signs [RC] ASDIRECTED 01/08/20 11:53 FSH, SERUM Routine
== END 2020-01-08 12:26 | disposition home or self-care (01) ==
LOC: JP.ED 10:57
DX: N92.4 Excessive bleeding in the premenopausal period (principal); I10 Essential (primary) hypertension; F41.9 Anxiety disorder, unspecified; F32.9 Major depressive disorder, single episode, unspecified; E66.9 Obesity, unspecified; Z68.41 Body mass index [BMI] 40.0-44.9, adult; Z79.01 Long term (current) use of anticoagulants; Z79.899 Other long term (current) drug therapy; Z91.048 Other nonmedicinal substance allergy status
CPT/HCPCS: 36415; 83001; 85027; 99282; 99284

== ENCOUNTER 2020-08-25 17:55 | Emergency (ER) | payer OTHER ==
[2020-08-25] MEDS ORDERED: Aspirin 81 MG Tab.Chew PO ONE (18:28)
[2020-08-25] MEDS ORDERED: Sodium Chloride 0.9% 1,000 ML IV SCH (18:30)
--- NOTE | 2020-08-25 18:32 | EDM.PDOC ---
ED HPI GENERAL MEDICAL PROBLEM - General Chief Complaint: Respiratory Problem Stated Complaint: SHORT OF BREATH Time Seen by Provider: 08/25/20 18:24 Source of Information: Reports: Patient, RN Notes Reviewed History Limitations: Reports: No Limitations - History of Present Illness INITIAL COMMENTS - FREE TEXT/NARRATIVE: 45-year-old female presents emergency department day complaint of shortness of breath with chest pain, she states it come on suddenly just prior to presentation to ED she is fine with shallow breaths she takes a deep breath pain is intense and goes to her back, no nausea vomiting no diaphoresis does have history of DVTs never had any pulmonary embolism does have third-degree heart block for which she has a pacemaker and is on Xarelto Upper Back Pain Score (Numeric/FACES): 8 - Related Data Allergies Allergy/AdvReac Type Severity Reaction Status Date / Time adhesive Allergy Hives Verified 08/25/20 18:18 Home Meds: Home Meds Rivaroxaban [Xarelto] 20 mg PO DAILY 07/24/19 [History] Venlafaxine HCl [Venlafaxine ER] 300 mg PO DAILY 07/24/19 [History] Acetaminophen [Tylenol Extra Strength] 1,000 mg PO Q6H tablet 07/26/19 [Rx] Ondansetron [Zofran ODT] 4 mg PO Q4H PRN #30 tab.dis 07/26/19 [Rx] Past Medical History Cardiovascular History: Reports: Blood Clots/VTE/DVT, Hypertension, Pacemaker Other Cardiovascular History: 3 rd degree heart block Respiratory History: Reports: Sleep Apnea [employer] History: Reports: Musculoskeletal History: Reports: Arthritis Psychiatric History: Reports: Anxiety, Depression, PTSD Endocrine/Metabolic History: Reports: Obesity/BMI 30+ Hematologic History: Reports: Anemia, Anticoagulation Therapy, Blood Transfusion(s) Oncologic (Cancer) History: Reports: None - Infectious Disease History Infectious Disease History: Reports: Chicken Pox - Past Surgical History HEENT Surgical History: Reports: Adenoidectomy Other HEENT Surgeries/Procedures: bilateral tubes ears Cardiovascular Surgical History: Reports: Pacer Respiratory Surgical History: Reports: None GI Surgical History: Reports: Hernia Repair/Other, Darwin Fundoplication Female Surgical History: Reports: Section Endocrine Surgical History: Reports: None Neurological Surgical History: Reports: None Musculoskeletal Surgical History: Reports: None Oncologic Surgical History: Reports: None Social & Family History - Tobacco Use Tobacco Use Status *Q: Never Tobacco User - Caffeine Use Caffeine Use: Reports: Tea - Recreational Drug Use Recreational Drug Use: No ED ROS GENERAL - Review of Systems Review Of Systems: See Below Constitutional: Reports: No Symptoms Respiratory: Reports: Shortness of Breath. Denies: Wheezing, Cough, Sputum Cardiovascular: Reports: Chest Pain GI/Abdominal: Reports: No Symptoms Musculoskeletal: Reports: Back Pain ED EXAM, GENERAL - Physical Exam Exam: See Below Exam Limited By: No Limitations General Appearance: Alert, Mild Distress Respiratory/Chest: No Respiratory Distress, Lungs Clear, Normal Breath Sounds, No Accessory Muscle Use, Chest Non-Tender Cardiovascular: No Murmur, Tachycardia GI/Abdominal: Soft, Non-Tender #1 Interpretation EKG Date: 08/25/20 Time: 18:47 Rhythm: NSR [place]: Normal P-Wave: Present QRS: Normal ST-T: Normal QT: Normal Comparison: No Change Course - Vital Signs Last Recorded V/S: Last Vital Signs Temp 98.0 F 08/25/20 18:17 Pulse 88 08/25/20 21:09 Resp 15 08/25/20 21:09 BP 136/76 08/25/20 21:09 Pulse Ox 96 08/25/20 21:09 - Orders/Labs/Meds Orders: Active Orders 24 hr Category Date Time Status Cardiac Monitoring [RC] .As Directed Care 08/25/20 18:28 Active EKG Documentation Completion [RC] ASDIRECTED Care 08/25/20 18:30 Active Peripheral IV Care [RC] . DIRECTED Care 08/25/20 18:28 Active Iopamidol [Isovue-370 (76%)] Med 08/25/20 18:45 Active 100 ml IV . DIRECTED Sodium Chloride 0.9% [Normal Saline] 1,000 ml Med 08/25/20 18:30 Active IV ASDIRECTED Sodium Chloride 0.9% [Normal Saline] 100 ml Med 08/25/20 18:45 Active IV ASDIRECTED Sodium Chloride 0.9% [Saline Flush] Med 08/25/20 18:28 Active 10 ml FLUSH ASDIRECTED PRN Peripheral IV Insertion Adult [OM.PC] Stat Oth 08/25/20 18:28 Ordered EKG 12 Lead [EK] Stat Ther 08/25/20 18:29 Ordered Medication Orders Sodium Chloride (Normal Saline) 1,000 mls @ 500 mls/hr IV ASDIRECTED [facility] Last Admin: 08/25/20 18:55 Dose: 500 mls/hr Documented by: DOMINIC Sodium Chloride (Normal Saline) 100 mls @ 3 mls/sec IV ASDIRECTED EDE Last Admin: 08/25/20 19:27 Dose: 3 mls/sec Documented by: SHARI Iopamidol (Iopamidol 755 Mg/Ml 100 Ml Bottle) 100 ml IV . DIRECTED EDE Last Admin: 08/25/20 19:27 Dose: 100 ml Documented by: SHARI Sodium Chloride (Sodium Chloride 0.9% 10 Ml Syringe) 10 ml FLUSH ASDIRECTED PRN PRN Reason: Keep Vein Open Last Admin: 08/25/20 19:27 Dose: 10 ml Documented by: Admin: 08/25/20 18:53 Dose: 10 ml Documented by: DOMINIC Labs: Laboratory Tests 08/25/20 08/25/20 08/25/20 Range/Units 18:45 18:51 18:51 WBC 10.5 (4.5-11.0) K/uL RBC 4.06 (3.30-5.50) M/uL Hgb 11.2 L (12.0-15.0) g/dL Hct 35.6 L (36.0-48.0) % MCV 88 (80-98) fL MCH 28 (27-31) pg MCHC 32 (32-36) % Plt Count 396 (150-400) K/uL Neut % (Auto) 84.8 H (36-66) % Lymph % (Auto) 9.4 L (24-44) % [place] % (Auto) 5.5 (2-6) % Eos % (Auto) 0.0 L (2-4) % Baso % (Auto) 0.3 (0-1) % Sodium 137 L (140-148) mmol/L Potassium 3.8 (3.6-5.2) mmol/L Chloride 100 (100-108) mmol/L Carbon Dioxide 24 (21-32) mmol/L Anion Gap 16.8 H (5.0-14.0) mmol/L BUN 10 (7-18) mg/dL Creatinine 0.9 (0.6-1.0) mg/dL Est Cr Clr Drug Dosing 61.12 mL/min Estimated GFR (MDRD) > 60 (>60) Glucose 109 H (74-106) mg/dL Lactic Acid 1.0 (0.4-2.0) mmol/L Calcium 9.0 (8.5-10.1) mg/dL Total Bilirubin 1.1 H (0.2-1.0) mg/dL AST 12 L (15-37) U/L ALT 19 (12-78) U/L Alkaline Phosphatase 88 (46-116) U/L Troponin I < 0.017 (0.000-0.056) ng/mL Total Protein 7.5 (6.4-8.2) g/dL Albumin 3.7 (3.4-5.0) g/dL Globulin 3.8 H (2.3-3.5) g/dL Albumin/Globulin Ratio 1.0 L (1.2-2.2) Meds: Medications Generic Name Dose Route Start Last Admin Trade Name Freq PRN Reason Stop Dose Admin Sodium Chloride 1,000 mls @ 500 mls/hr 08/25/20 18:30 08/25/20 18:55 Normal Saline IV 500 mls/hr ASDIRECTED EDE Administration Sodium Chloride 100 mls @ 3 mls/sec 08/25/20 18:45 08/25/20 19:27 Normal Saline IV 3 mls/sec ASDIRECTED EDE Administration Iopamidol 100 ml 08/25/20 18:45 08/25/20 19:27 Iopamidol 755 Mg/Ml 100 Ml Bottle IV 100 ml . DIRECTED EDE Administration Sodium Chloride 10 ml 08/25/20 18:28 08/25/20 19:27 Sodium Chloride 0.9% 10 Ml Syringe FLUSH 10 ml ASDIRECTED PRN Administration Keep Vein Open Discontinued Medications Generic Name Dose Route Start Last Admin Trade Name Freq PRN Reason Stop Dose Admin Aspirin 324 mg 08/25/20 18:28 08/25/20 18:54 Aspirin 81 Mg Tab.Chew PO 08/25/20 18:29 324 mg ONETIME ONE Administration Cyclobenzaprine HCl 10 mg 08/25/20 22:01 08/25/20 22:06 Cyclobenzaprine 10 Mg Tab PO 08/25/20 22:02 10 mg ONETIME ONE Administration Ketorolac Tromethamine 30 mg 08/25/20 21:08 08/25/20 21:17 Ketorolac 30 Mg/Ml Sdv IVPUSH 08/25/20 21:09 30 mg ONETIME ONE Administration Sodium Chloride 10 ml 08/25/20 18:35 08/25/20 18:54 Sodium Chloride 0.9% 10 Ml Sdv FLUSH 08/25/20 18:36 10 ml ONETIME ONE Administration Departure - Departure Time of Disposition: 22:34 Disposition: Home, Self-Care 01 Condition: Fair Clinical Impression: Atypical chest pain - Discharge Information Instructions: Nonspecific Chest Pain, Adult, [id number] Referrals: LUZ MARINA MARIE MD [Other] Forms: ED Department Discharge Additional Instructions: Try the Flexeril in combination with Motrin or Tylenol for pain control, please followup with your primary care provider in 3-5 days if not better, please call return to the emergency department with worsening of symptoms. Sepsis Event Note (ED) - Evaluation Sepsis Screening Result: No Definite Risk - Focused Exam Vital Signs: Vital Signs Temp Pulse Resp BP Pulse Ox 08/25/20 21:09 88 15 136/76 96 08/25/20 20:09 83 31 H 122/93 H 96 08/25/20 19:00 105 H 31 H 131/92 H 95 08/25/20 18:17 98.0 F 103 H 22 H 120/71 100 08/25/20 18:12 98.0 F 103 H 22 H 120/71 100 - My Orders Last 24 Hours: My Active Orders 08/25/20 18:28 Cardiac Monitoring [RC] .As Directed Peripheral IV Care [RC] . DIRECTED Sodium Chloride 0.9% [Saline Flush] 10 ml FLUSH ASDIRECTED PRN Peripheral IV Insertion Adult [OM.PC] Stat 08/25/20 18:29 EKG 12 Lead [EK] Stat 08/25/20 18:30 EKG Documentation Completion [RC] ASDIRECTED Sodium Chloride 0.9% [Normal Saline] 1,000 ml IV ASDIRECTED 08/25/20 18:45 Iopamidol [Isovue-370 (76%)] 100 ml IV . DIRECTED Sodium Chloride 0.9% [Normal Saline] 100 ml IV ASDIRECTED - Assessment/Plan Last 24 Hours: My Active Orders 08/25/20 18:28 Cardiac Monitoring [RC] .As Directed Peripheral IV Care [RC] . DIRECTED Sodium Chloride 0.9% [Saline Flush] 10 ml FLUSH ASDIRECTED PRN Peripheral IV Insertion Adult [OM.PC] Stat 08/25/20 18:29 EKG 12 Lead [EK] Stat 08/25/20 18:30 EKG Documentation Completion [RC] ASDIRECTED Sodium Chloride 0.9% [Normal Saline] 1,000 ml IV ASDIRECTED 08/25/20 18:45 Iopamidol [Isovue-370 (76%)] 100 ml IV . DIRECTED Sodium Chloride 0.9% [Normal Saline] 100 ml IV ASDIRECTED Plan: Assessment Acuity = acute Site and laterality = atypical chest pain Etiology = unknown Manifestations = none Location of injury = Home Lab values = hemoglobin low 11.2 consistent normochromic anemia, lactic acid normal 1.0 bilirubin slightly elevated 1.1 consistent with hyperbilirubinemia AST slightly elevated [address] scan shows no pulmonary embolism however she does have cholelithiasis Plan Was provided Toradol with pain relief no help was given Flexeril which did provide some pain relief follow-up with your primary care in 3 to 5 days if not better prescription written for Flexeril 10 mg 1 tab p.o. 3 times daily as needed total #15 This note was dictated using [employer] voice recognition software please call with any questions on syntax or grammar.
[2020-08-25] MEDS ORDERED: Sodium Chloride 0.9% 10 ML SDV FLUSH ONE (18:35)
[2020-08-25] MEDS ORDERED: Sodium Chloride 0.9% 100 ML IV SCH (18:45)
[2020-08-25] MEDS ORDERED: Iopamidol 755 Mg/ML 100 ML Bottle IV SCH (18:45)
[2020-08-25] MEDS: Sodium Chloride 0.9% 10 ML Syringe FLUSH PRN ×2 (18:53→19:27)
--- NOTE | 2020-08-25 20:58 | CRLCT ---
For Patients: As a result of the Century Cures Act, medical imaging exams and procedure reports are released immediately into your electronic medical record. You may view this report before your referring provider. If you have questions, please contact your health care provider. INDICATION: Shortness of breath, chest pain, history DVT TECHNIQUE: CT chest PE was acquired with 79 mL Isovue 370 IV contrast. COMPARISON: None. FINDINGS: Heart and vasculature: Contrast opacification of the pulmonary arterial tree is adequate. No sign of pulmonary embolism. Heart size is enlarged. Thoracic aorta and pulmonary artery are normal in caliber. Lungs and pleural: No suspicious nodules or infiltrates. Calcified granuloma posterior right lower lobe no pleural effusions, pleural thickening, or pneumothorax. Lymph nodes/mediastinum: No mediastinal, hilar, or axillary adenopathy. Calcifications in nonenlarged right mediastinal lymph nodes. Thyroid gland is normal. Pacemaker components. Chest wall: No masses. Upper abdomen: Vague, dependent densities in the gallbladder could represent calculi. There is no biliary in large. Consider gallbladder ultrasound if indicated clinically. Hiatal hernia, possible postoperative changes gastroesophageal junction Bones: Unremarkable for age. IMPRESSION: 1. No CT evidence of pulmonary embolism. 2. Mild cardiomegaly. Pacemaker components present. 3. No definitive acute pulmonary process. 4. Possible cholecystolithiasis, consider ultrasound if indicated. 5. Possible postoperative change at gastroesophageal junction, correlation with clinical/surgical history recommended. Please note that all CT scans at this facility use dose modulation, iterative reconstruction, and/or weight-based dosing when appropriate to reduce radiation dose to as low as reasonably achievable. Dictated by Ken Jacob MD @ 08/25/2020 8:56:[address] Ken Jacob @ Aug 25 2020 8:56PM
[2020-08-25] MEDS ORDERED: Ketorolac 30 MG/ML SDV IVPUSH ONE (21:08)
[2020-08-25] MEDS ORDERED: Cyclobenzaprine 10 MG Tab PO ONE (22:01)
[2020-08-25 22:46] VITALS: BP 134/72; PULSE 80
== END 2020-08-25 22:45 | disposition home or self-care (01) ==
LOC: JP.ED 17:55
DX: R07.89 Other chest pain (principal); I10 Essential (primary) hypertension; Z95.0 Presence of cardiac pacemaker; E66.9 Obesity, unspecified; Z91.018 Allergy to other foods; Z79.01 Long term (current) use of anticoagulants; Z68.41 Body mass index [BMI] 40.0-44.9, adult
CPT/HCPCS: 36415; 71275; 80053; 83605; 84484; 85025; 93005; 96374; 99285; A9270; J1885; J7030; Q9967

== ENCOUNTER 2022-06-02 07:53 | Emergency (ER) | payer OTHER ==
[2022-06-02 08:45] VITALS: PULSE 74
[2022-06-02 11:25] VITALS: BP 126/77
== END 2022-06-02 11:20 | disposition home or self-care (01) ==
LOC: JP.ED 07:53
DX: M79.662 Pain in left lower leg (principal); E66.9 Obesity, unspecified; I10 Essential (primary) hypertension; D64.9 Anemia, unspecified; Z68.42 Body mass index [BMI] 45.0-49.9, adult; Z91.148 Patient's other noncompliance with medication regimen for other reason; Z86.718 Personal history of other venous thrombosis and embolism; Z79.01 Long term (current) use of anticoagulants; Z91.048 Other nonmedicinal substance allergy status; Z79.899 Other long term (current) drug therapy
CPT/HCPCS: 36415; 85379; 93971-26-LT; 93971-LT; 99284

== ENCOUNTER 2022-09-26 14:07 | Emergency (ER) | payer OTHER ==
[2022-09-26 14:50] VITALS: BP 151/90; PULSE 121
== END 2022-09-26 16:04 | disposition home or self-care (01) ==
LOC: JP.ED 14:07
DX: N94.6 Dysmenorrhea, unspecified (principal); D50.0 Iron deficiency anemia secondary to blood loss (chronic); I10 Essential (primary) hypertension; E66.9 Obesity, unspecified; Z95.0 Presence of cardiac pacemaker; Z91.048 Other nonmedicinal substance allergy status; Z79.01 Long term (current) use of anticoagulants; Z68.42 Body mass index [BMI] 45.0-49.9, adult
CPT/HCPCS: 36415; 85018; 99283; 99284

== ENCOUNTER 2023-02-02 05:25 | Emergency (ER) | payer OTHER ==
[2023-02-02] MEDS ORDERED: Sodium Chloride 0.9% 10 ML Syringe FLUSH PRN (05:40)
[2023-02-02 05:41] VITALS: BP 155/79; PULSE 69
[2023-02-02] MEDS ORDERED: Sodium Chloride 0.9% 1,000 ML IV SCH (05:45)
[2023-02-02 05:58] LABS: BASOPHILS PERCENT AUTO 0.5 % (0.1-1.3); EOSINOPHILS ABSOLUTE AUTO 0.07 K/uL (0.00-0.40); EOSINOPHILS PERCENT AUTO 1.8 % (0.0-5.4); HEMATOCRIT 34.4 % (34.3-46.0); HEMOGLOBIN 11.1 g/dL (11.2-15.5); LYMPHOCYTES ABSOLUTE AUTO 1.81 K/uL (0.8-3.3); LYMPHOCYTES PERCENT AUTO 46.3 % (11.4-47.7); MEAN CORPUSCULAR HEMOGLOBIN 28.2 pg (31.6-35.5); MEAN CORPUSCULAR HGB CONC 32.3 g/dL (31.6-35.5); MEAN CORPUSCULAR VOLUME 87.5 fL (81.4-99.0); MONOCYTES PERCENT AUTO 10.2 % (3.3-12.6); NEUTROPHILS ABSOLUTE AUTO 1.61 K/uL (1.0-7.6); NEUTROPHILS PERCENT AUTO 41.2 % (40.0-78.1); PLATELET COUNT,PLT 304 K/uL (130-375); RED BLOOD CELL COUNT 3.93 M/uL (3.77-5.24); WHITE BLOOD CELL COUNT,WBC 3.9 K/uL (3.2-11.0)
[2023-02-02 06:02] LABS: BASOPHILS ABSOLUTE AUTO 0.02 K/uL (0.00-0.10)
[2023-02-02 06:19] LABS: A/G RATIO 0.9 (1.2-2.2); ALANINE AMINOTRANSFERASE,ALT 17 U/L (12-78); ALBUMIN 3.4 g/dL (3.4-5.0); ALKALINE PHOSPHATASE 78 U/L (46-116); ASPARTATE AMNIOTRANSFERASE,AST 19 U/L (15-37); BILIRUBIN TOTAL 0.6 mg/dL (0.2-1.0); BLOOD UREA NITROGEN,BUN 13 mg/dL (7-18); CALCIUM 8.6 mg/dL (8.5-10.1); CARBON DIOXIDE,CO2 28 mmol/L (21-32); CHLORIDE,CL 104 mmol/L (100-108); CREATININE 0.9 mg/dL (0.6-1.0); EST CRCL DRUG DOSING (CG) 57.06 mL/min; ESTIMATED GFR 78 mL/min (>60); GLUCOSE RANDOM 109 mg/dL (74-106); MAGNESIUM 1.9 mg/dL (1.8-2.4); POTASSIUM,K 3.9 mmol/L (3.6-5.2); SODIUM,NA 138 mmol/L (140-148)
[2023-02-02 06:22] LABS: ANION GAP 9.9 mmol/L (5.0-14.0); C-REACTIVE PROTEIN < 0.50 mg/dL (<0.50)
== END 2023-02-02 06:55 | disposition home or self-care (01) ==
LOC: JP.ED 05:25
DX: M79.661 Pain in right lower leg (principal); M79.662 Pain in left lower leg; I10 Essential (primary) hypertension; E66.9 Obesity, unspecified; Z68.42 Body mass index [BMI] 45.0-49.9, adult; Z91.048 Other nonmedicinal substance allergy status; Z79.899 Other long term (current) drug therapy
CPT/HCPCS: 36415; 80053; 83735; 85025; 86140; 96360; 99283; J7030